=== PATIENT | male | born 1955 | race Caucasian/White ===

== ENCOUNTER 2017-11-09 16:05 | Emergency (ER) | payer MEDICARE, MEDICAID ==
[2017-11-09] MEDS ORDERED: Diphtheria,Pertussis(Acell),Tetanus Vaccine 0.5 ML SDV IM ONE (17:26)
[2017-11-09] MEDS ORDERED: Lidocaine 1% with EPINEPHrine 1:100,000 50 ML MDV INJECT PRN (17:27)
[2017-11-09] MEDS ORDERED: Bacitracin Oint 1 GM U/D Packet TOP ONE (17:33)
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
== END 2017-11-09 19:20 | disposition home or self-care (01) ==
LOC: JP.ED 16:05
DX: S01.01XA Laceration without foreign body of scalp, initial encounter (principal); S09.90XA Unspecified injury of head, initial encounter; Z23 Encounter for immunization; F17.210 Nicotine dependence, cigarettes, uncomplicated; W22.8XXA Striking against or struck by other objects, initial encounter
CPT/HCPCS: 12013; 70450; 90471; 90715; 99284-25

== ENCOUNTER 2020-12-09 10:57 | Emergency (ER) | payer MEDICARE, MEDICAID ==
--- NOTE | 2020-12-09 11:39 | EDM.PDOC ---
ED HPI GENERAL MEDICAL PROBLEM - General Chief Complaint: ENT Problem Stated Complaint: CAN'T HEAR OUT OF L EAR Time Seen by Provider: 12/09/20 11:07 Source of Information: Reports: Patient History Limitations: Reports: No Limitations - History of Present Illness INITIAL COMMENTS - FREE TEXT/NARRATIVE: 65 yo male presents with a decrease hearing in his left ear. He denies pain or injury. He did try Debrox at home without results. no other complaints - Related Data Allergies Allergy/AdvReac Type Severity Reaction Status Date / Time No Known Allergies Allergy Verified 11/09/17 17:06 Home Meds: Home Meds NK [No Known Home Meds] 11/09/17 [History] Past Medical History HEENT History: Reports: Impaired Vision Neurological History: Reports: Head Trauma Psychiatric History: Reports: Addiction - Infectious Disease History Infectious Disease History: Reports: Chicken Pox - Past Surgical History Musculoskeletal Surgical History: Reports: Arthroscopic Knee Social & Family History - Tobacco Use Tobacco Use Status *Q: Current Every Day Tobacco User Years of Tobacco use: 40 Packs/Tins Daily: 0.5 - Caffeine Use Caffeine Use: Reports: Coffee, Soda - Recreational Drug Use Recreational Drug Use: No ED ROS ENT - Review of Systems Review Of Systems: See Below Constitutional: Denies: Fever, Chills HEENT: Reports: Other (hearing loss). Denies: Ear Discharge Respiratory: Denies: Shortness of Breath, Wheezing Cardiovascular: Denies: Chest Pain ED EXAM, ENT - Physical Exam Exam: See Below Exam Limited By: No Limitations General Appearance: Alert, WD/WN, No Apparent Distress Ears: Hearing Loss, Cerumen Impaction (bilateral) Mouth/Throat: Normal Gums, Normal Lips, Other (poor dentation) Head: Atraumatic, Normocephalic Neck: Normal Inspection, Supple, Non-Tender, Full Range of Motion. No: Lymphadenopathy (R), Lymphadenopathy (L) Respiratory/Chest: No Respiratory Distress, Lungs Clear, Normal Breath Sounds. No: Crackles, Rhonchi, Wheezing Cardiovascular: Regular Rate, Rhythm Course - Vital Signs Last Recorded V/S: Last Vital Signs Temp 36.8 C 12/09/20 11:13 Pulse 84 12/09/20 11:13 Resp 14 12/09/20 11:13 BP 143/69 H 12/09/20 11:13 Pulse Ox 95 12/09/20 11:13 - Re-Assessments/Exams Free Text/Narrative Re-Assessment/Exam: 12/09/20 11:38 cerumen cleared with nurse earwash Departure - Departure Time of Disposition: 11:39 Disposition: Home, Self-Care 01 Condition: Good Clinical Impression: Impacted cerumen of both ears - Discharge Information *PRESCRIPTION DRUG MONITORING PROGRAM REVIEWED*: Not Applicable *COPY OF PRESCRIPTION DRUG MONITORING REPORT IN PATIENT HOLLY: Not Applicable Instructions: Earwax Buildup, Adult Referrals: PCP,None [Primary Care Provider] - Sepsis Event Note (ED) - Evaluation Sepsis Screening Result: No Definite Risk - Focused Exam Vital Signs: Vital Signs Temp Pulse Resp BP Pulse Ox 12/09/20 11:13 36.8 C 84 14 143/69 H 95 12/09/20 11:10 36.8 C 84 14 143/69 H 95
== END 2020-12-09 11:47 | disposition home or self-care (01) ==
LOC: JP.ED 10:57
DX: H61.23 Impacted cerumen, bilateral (principal); Z72.0 Tobacco use
CPT/HCPCS: 99282-25

== ENCOUNTER 2022-11-22 00:27 | Emergency (ER) | payer MEDICARE, MEDICAID ==
[2022-11-22 01:38] LABS: BASOPHILS ABSOLUTE AUTO 0.07 K/uL (0.00-0.10); BASOPHILS PERCENT AUTO 0.8 % (0.1-1.3); EOSINOPHILS ABSOLUTE AUTO 0.18 K/uL (0.00-0.40); HEMATOCRIT 41.9 % (38.4-49.7); HEMOGLOBIN 14.2 g/dL (12.9-16.9); IMMATURE GRAN ABSOLUTE AUTO 0.03 K/uL (0.00-0.23); IMMATURE GRAN PERCENT AUTO 0.3 % (0.0-0.7); LYMPHOCYTES ABSOLUTE AUTO 2.61 K/uL (0.8-3.3); LYMPHOCYTES PERCENT AUTO 28.6 % (11.4-47.7); MEAN CORPUSCULAR HEMOGLOBIN 31.5 pg (31.6-35.5); MEAN CORPUSCULAR HGB CONC 33.9 g/dL (31.6-35.5); MEAN CORPUSCULAR VOLUME 92.9 fL (81.4-99.0); MONOCYTES ABSOLUTE AUTO 0.78 K/uL (0.20-0.90); MONOCYTES PERCENT AUTO 8.6 % (3.3-12.6); NEUTROPHILS ABSOLUTE AUTO 5.44 K/uL (1.0-7.6); NEUTROPHILS PERCENT AUTO 59.7 % (40.0-78.1); PLATELET COUNT,PLT 288 K/uL (130-375); RED BLOOD CELL COUNT 4.51 M/uL (4.14-5.76); WHITE BLOOD CELL COUNT,WBC 9.1 K/uL (3.2-11.0)
[2022-11-22 02:08] LABS: CALCIUM 8.8 mg/dL (8.5-10.1); CREATININE 1.1 mg/dL (0.8-1.3); EST CRCL DRUG DOSING (CG) 78.95 mL/min; TROPONIN I HIGH SENSITIVITY 7.4 pg/mL (<=60.3)
== END 2022-11-22 02:45 | disposition home or self-care (01) ==
LOC: JP.ED 00:27
DX: R06.02 Shortness of breath (principal); R06.01 Orthopnea; Z72.0 Tobacco use
CPT/HCPCS: 36415; 71046; 71046-26; 80048; 83605; 83880; 84484; 85025; 93005; 99285